=== PATIENT | male | born 1960 | race Caucasian/White ===

== ENCOUNTER 2021-04-19 10:54 | Emergency (ER) | payer MEDICAID ==
[~2021-04-19] VITALS: Ht 190.5 cm; Wt 85.5 kg
[2021-04-19 11:18] VITALS: BP 151/91
[2021-04-19] MEDS ORDERED: ACETAMINOPHEN 500 MG TABLET PO ONE (12:00)
[2021-04-19] MEDS ORDERED: ACETAMINOPHEN 500 MG TABLET ONE (12:18)
== END 2021-04-19 12:29 | disposition home or self-care (01) ==
LOC: ED 12:20
DX: S39.012A Strain of muscle, fascia and tendon of lower back, initial encounter (principal); S29.012A Strain of muscle and tendon of back wall of thorax, initial encounter; F17.200 Nicotine dependence, unspecified, uncomplicated; X58.XXXA Exposure to other specified factors, initial encounter; Y93.89 Activity, other specified; Y92.89 Other specified places as the place of occurrence of the external cause; Y99.8 Other external cause status
CPT/HCPCS: 99283